=== PATIENT | male | born 1985 | race Caucasian/White ===

== ENCOUNTER → 2019-06-27 | Outpatient (CLI) | payer BC ==
[2019-06-27 10:48] LABS: RED BLOOD COUNT 5.68 10^6/uL (4.35-5.55)
[2019-06-27 11:10] LABS: ALBUMIN 4.2 g/dL (3.5-5.0); ALKALINE PHOSPHATASE 71 U/L (38-126); ANION GAP 9 (5-19); ASPARTATE AMINO TRANSFERASE 160 U/L (17-59); BILIRUBIN,DIRECT 0.7 mg/dL (0.0-0.4); BILIRUBIN,TOTAL 5.3 mg/dL (0.2-1.3); BLOOD UREA NITROGEN 7 mg/dL (7-20); CALCIUM 9.4 mg/dL (8.4-10.2); CARBON DIOXIDE 31 mmol/L (22-30); CHLORIDE 99 mmol/L (98-107); CHOLESTEROL 223.92 mg/dL (0-200); GLUCOSE 110 mg/dL (75-110); POTASSIUM 3.9 mmol/L (3.6-5.0); TOTAL PROTEIN 7.5 g/dL (6.3-8.2); TRIGLYCERIDES 185 mg/dL (<150); URIC ACID 10.3 mg/dL (3.5-8.5)
[2019-06-27 11:21] LABS: DIRECT LDL 182 mg/dL (<100)
[2019-06-27 12:01] LABS: HEMATOCRIT 58.3 % (37.9-51.0); WHITE BLOOD COUNT 5.6 10^3/uL (4.0-10.5)
[2019-06-27 12:02] LABS: MEAN CORPUSCULAR HEMOGLOBIN 36.1 pg (27.0-33.4); MEAN CORPUSCULAR HGB CONC 35.2 g/dL (32.0-36.0); MEAN CORPUSCULAR VOLUME 103 fl (80-97); PLATELET COUNT 152 10^3/uL (150-450)
[2019-06-27 12:12] LABS: ABSOLUTE LYMPHOCYTES# (MANUAL) 0.8 10^3/uL (0.5-4.7); ABSOLUTE MONOCYTES # (MANUAL) 0.5 10^3/uL (0.1-1.4); ANISOCYTOSIS SLIGHT; BASOPHILS % (MANUAL) 0 % (0-2); EOSINOPHILS % (MANUAL) 2 % (0-6); LYMPHOCYTES % (MANUAL) 15 % (13-45); MONOCYTES % (MANUAL) 9 % (3-13); PLATELET COMMENT ADEQUATE; SEGMENTED NEUTROPHILS % (MAN) 74 % (42-78); TOTAL CELLS COUNTED 100
[2019-06-27 13:41] LABS: HEMOGLOBIN 20.5 g/dL (13.5-17.0)
== END ==
LOC: OD 09:49
PROVIDERS: ATTEND Family Medicine
DX: M10.9 Gout, unspecified (principal)
CPT/HCPCS: 36415; 80053; 80061; 84550; 85025

== ENCOUNTER 2019-09-05 08:48 | Day surgery (SDC) | payer BC ==
[2019-09-05 10:46] LABS: HEMATOCRIT 46.5 % (37.9-51.0); HEMOGLOBIN 16.4 g/dL (13.5-17.0); MEAN CORPUSCULAR HEMOGLOBIN 37.6 pg (27.0-33.4); MEAN CORPUSCULAR HGB CONC 35.4 g/dL (32.0-36.0); MEAN CORPUSCULAR VOLUME 106 fl (80-97); PLATELET COUNT 242 10^3/uL (150-450); RED BLOOD COUNT 4.38 10^6/uL (4.35-5.55); RED CELL DISTRIBUTION WIDTH 15.4 % (11.5-14.0); WHITE BLOOD COUNT 6.7 10^3/uL (4.0-10.5)
[2019-09-05 10:47] LABS: INTERNATIONAL RATION (INR) 1.15; PROTHROMBIN TIME 14.8 SEC (11.4-15.4)
[2019-09-05 10:48] LABS: PARTIAL THROMBOPLASTIN TIME 28.9 SEC (23.5-35.8)
[2019-09-05 11:02] LABS: BLOOD UREA NITROGEN 8 mg/dL (7-20)
[2019-09-05] MEDS ORDERED: MIDAZOLAM 2 MG/2 ML INJ ONE (11:18)
[2019-09-05] MEDS ORDERED: FENTANYL CITRATE INJ/PF 100 MCG/2 ML AMPUL ONE (11:18)
--- NOTE | 2019-09-05 13:09 | RADIOLOGY REPORT (SQ) ---
EXAM DESCRIPTION: CT BIOPSY LIVER; CT NEEDLE PLACEMENT COMPLETED DATE/TIME: 09/05/2019 11:51 am; 09/05/2019 11:50 am REASON FOR STUDY: HEMOCHROMATOSIS; HEMOCHROMATOSIS, LIVER BIOPSY E83.119 HEMOCHROMATOSIS, UNSPECIFI ED COMPARISON: None. FLUORO TIME: 3.4 seconds. 73 images submitted to PACS. LIMITATIONS: None. PROCEDURE: The procedure, risks, benefits, and alternatives were discussed with the patient in the p reprocedural area, and all questions were answered. Informed consent was obtained verbally and in wri ting. The patient was then brought to the CT suite, positioned supine on the CT gurney, and a time-out was performed. After that, axial images of the abdomen were obtained for targeting of the right lobe of the liver. Based on review of the axial images an appropriate access site was selected on the skin. The area around selected access site was then prepped and draped with 2% chlorhexidine utilizing jareth dard sterile technique. After that, the access site was infiltrated with 1% lidocaine and an incisio n was made in the skin with a #11 blade. A 17 gauge coaxial needle was then advanced through the skin incision and into the right lobe of the liver utilizing CT fluoroscopic guidance. After that, the in ner stylet of the coaxial needle was removed and 4 18 gauge core samples were obtained - the samples were collected and submitted to cytopathology in formalin. Then, as coaxial needle was removed, the biopsy track was embolized with Gelfoam. After the coaxial needle was removed axial images of the abdomen were repeated and reviewed ; the images demonstrated n o acute biopsy-related complication. The patient tolerated the procedure well without immediate complication. At the end of the procedure the patient's condition was unchanged from the preprocedural baseline. IV conscious sedation was administered at the direction of the performing physician by a registered gage de anda. 1 milligrams of Versed and 50 micrograms of fentanyl. Physiologic monitoring was provided befor e, during, and after sedation. The total sedation time was 30 minutes. Documentation of [id number] time the performing proceduralist spent monitoring the patient: 5 jordon cristopher. IMPRESSION: Successful CT-guided biopsy of the right lobe of the liver as detailed above. COMMENT: Patient medication list reviewed:Yes- Quality ID# 130:Eligible professional attests to docu menting in the medical record they obtained, updated, or reviewed the patient's current medications. Quality ID #76: The patient was prepped and draped using maximum sterile barrier technique including cap, mask, sterile gown, sterile gloves, a large sterile sheet, hand hygiene, and 2% Chlorhexidine fo r cutaneous antisepsis. When ultrasound is used, sterile ultrasound techniques are followed requiring sterile gel and sterile probes. Quality ID 145: Final reports for procedures using fluoroscopy that document radiation exposure avila carmelo, or exposure time and number of fluorographic images (if radiation exposure indices are not avail able) Quality ID# 436: Final reports with documentation of one or more dose reduction techniques (e.g., Aut omated exposure control, adjustment of the mA and/or kV according to patient size, use of iterative r econstruction technique) TECHNICAL DOCUMENTATION: JOB ID: [id number] 2010 [employer]- All Rights Reserved rev-10/21 Reading location - IP/workstation name: [email or web address]
[2019-09-05 16:06] VITALS: BP 139/89
== END 2019-09-05 14:15 | disposition home or self-care (01) ==
LOC: RAD 08:48
PROVIDERS: ATTEND Internal Medicine
DX: E83.119 Hemochromatosis, unspecified (principal); K75.81 Nonalcoholic steatohepatitis (NASH); Z79.899 Other long term (current) drug therapy
CPT/HCPCS: 36415; 84520; 82565; 85027; 85610; 85730; 88307 ×2; 88313 ×2; 77012; 47000; J2250; J3010; 88305